=== PATIENT | male | born 1975 | race Caucasian/White ===

== ENCOUNTER 2016-09-29 07:00 | Emergency (ER) | payer SELFPAY ==
[2016-09-29] MEDS ORDERED: Sodium Chloride 0.9% 10 ML Syringe FLUSH PRN (07:16)
[2016-09-29] MEDS: Sodium Chloride 0.9% 1,000 ML IV ONE ×2 (07:30→08:15)
[2016-09-29] MEDS ORDERED: Meropenem 1 GM in Sodium Chloride 0.9% 100 ML IV ONE (07:31)
[2016-09-29] MEDS: Morphine 2 MG/ML Syringe IVPUSH PRN ×3 (07:40→08:35)
[2016-09-29 07:52] LABS: CHLORIDE,CL 100 mmol/L (98-107); SODIUM,NA 136 mmol/L (136-145)
[2016-09-29] MEDS ORDERED: Norepinephrine 4 MG in Dextrose 5% in Water 246 ML IV SCH ×2 (08:30)
[2016-09-29 10:05] VITALS: BP 87/42
--- NOTE | 2016-10-01 10:33 | ER ---
Date of Service: 09/29/2016 REASON FOR VISIT: Fever and jaundice. SUBJECTIVE/HISTORY: A 40-year-old male brought to the emergency room via ambulance. The reports show he is having high fevers all week since Saturday between 102 and 106 degrees at home. He has been taking ice baths and placed ice on him to lower his temperature and taking some Tylenol to lower his fever. He is having some right upper quadrant discomfort with this. Denies nausea or vomiting. Results noted to have frequent nosebleeds and some bright red rectal bleeding presumably from hemorrhoids. He did see the physician on 09/26, Dr. Julio Cesar Ho at [facility]. His notes from that visit were obtained and reviewed and his lab work at that time was reviewed. He was noted to have a hemoglobin of 13.2 and a bilirubin of 9.4, creatinine 1.06. He was felt to be in end-stage liver disease and acute alcoholic hepatitis. He was advised hospital admission for management, and the patient declined. He had been taking quite a bit of Tylenol up to eight 500 mg tablets per day for allergies and other symptoms. Both these medications were stopped at that visit on 09/26 and replaced with prednisone and lorazepam. ALLERGIES: Bee pollen and penicillin causing a rash. Strawberries. HABITS: Alcohol use. He admits to at least 15 drinks on the weekends. This probably more and he has been doing this for 20+ years. He denies drug use. REVIEW OF SYSTEMS: He denies chest pain. He has had a little bit of shortness of breath. No cough. He has right upper quadrant abdominal pain. He has an umbilical hernia, it is more protuberant. He has noted some abdominal distention. He has had some decreased urinary output. He has had some bright red blood per rectum, presumed hemorrhoids. Otherwise, normal bowel movements. Denies any numbness, tingling, or pain in his extremities. OBJECTIVE: General: He is alert. Unable to answer questions appropriately. Vital Signs: Temperature here was 102.7, pulse of 145, blood pressure on presentation was 138/67, respirations 16, O2 sats 96%. HEENT: Eyes, he has marked scleral icterus. Throat is unremarkable. Neck: Supple. Heart: Regular rate and rhythm. No murmur heard. Lungs: Clear to auscultation. Abdomen: Distended. There is marked tenderness in the right upper quadrant. Liver seem to be enlarged. No masses palpable. Extremities: Warm and dry. No edema. Rectal: Not done. LABORATORY: Here, white count 10.0, hemoglobin 13.2, stable. His INR is elevated at 1.5. He has had no anticoagulation. Electrolytes are normal. Creatinine is elevated at 1.8. Lactic acid was high at 7.2, magnesium low at 1.5, bilirubin remains elevated at 9.6. AST of 297, ALT of 98, alkaline phosphatase of 211, albumin 2.4, blood alcohol was negative. The patient did have an ultrasound done on . This showed hepatomegaly with presumed fatty liver and some sludge in the gallbladder, otherwise unremarkable. EMERGENCY ROOM COURSE: He was given IV fluids of normal saline 2 liters. While the first and second liters were running, his blood pressure dropped into the 80 systolic. At that point, Levophed was started as a pressor agent, with some mild improvement in his hypotension. He is also felt to be septic and therefore, he was given meropenem and vancomycin both IV for this. Blood cultures have been done previously to the antibiotics being given. ASSESSMENT: 1. Sepsis from an intraabdominal source. 2. Hypotension secondary to the sepsis. 3. Liver disease, presumed secondary to alcoholic hepatitis. 4. Probable ascites. 5. Probable portal hypertension. PLAN: I did contact [facility] and one call at [facility]. [facility] had no ICU beds. [facility] did have ICU beds. I talked to Dr. Triplett and he agreed to accept the patient in transfer to an ICU bed at [facility] in [place]. The patient was agreeable. The patient is being transported to [place] upon by ALS ambulance. They will continue the fluids and Levophed in route. FM: 09/29/2016 09:05:07 MODL: 09/29/2016 10:52:25 /[id number]
== END 2016-09-29 09:00 | disposition short-term general hospital (02) ==
LOC: VM.ED 07:00
DX: A41.9 Sepsis, unspecified organism (principal); I95.89 Other hypotension; K76.9 Liver disease, unspecified
CPT/HCPCS: 36415; 80053; 82150; 82977; 83605; 83735; 85025; 85610; 87040; 96365; 96367; 96375; 96376; 99285; G0480; J2185; J2270; J3370; J7030; J7050; J7060; 87077; 87186